=== PATIENT | male | born 1960 | race Caucasian/White ===

== ENCOUNTER 2020-09-03 13:36 | Emergency (ER) | payer OTHER ==
[~2020-09-03] VITALS: Ht 177.8 cm; Wt 65.0 kg
[2020-09-03] MEDS ORDERED: HYDROMORPHONE HCL/PF 2MG/ML CPJ IV ONE ×2 (15:00→17:15)
[2020-09-03] MEDS ORDERED: AMITRIPTYLINE 50MG TABLET PO ONE (15:00)
[2020-09-03] MEDS ORDERED: AMITRIPTYLINE 25MG TABLET PO ONE (15:30)
[2020-09-03 19:06] VITALS: BP 159/82
== END 2020-09-03 19:10 ==
LOC: ER 13:36
DX: M79.604 Pain in right leg (principal); Z98.890 Other specified postprocedural states
CPT/HCPCS: 96374; 96376; 99285; J1170

== ENCOUNTER 2021-05-13 17:06 | Emergency (ER) | payer OTHER ==
[~2021-05-13] VITALS: Ht 182.9 cm; Wt 91.0 kg
[2021-05-13] MEDS ORDERED: ONDANSETRON HCL 4MG/2ML INJ IV STA ×2 (17:35→18:56)
[2021-05-13] MEDS ORDERED: MORPHINE SULFATE 4 MG/ML CPJ (NOT FOR IM USE) IV STA ×2 (17:35→18:56)
[2021-05-13 18:06] LABS: BASOPHILS % 0.5 % (0.0-2.0); EOSINOPHILS % 1.3 % (0.0-5.0); HEMATOCRIT. 37.4 % (42.0-52.0); HEMOGLOBIN. 13.2 g/dL (14.0-18.0); LYMPHOCYTES % 15.8 % (20.0-50.0); MEAN CORPUSCULAR HEMOGLOBIN 31.3 pg (28.0-32.0); MEAN CORPUSCULAR VOLUME 89.2 fL (80.0-94.0); MEAN PLATELET VOLUME 7.1 fl (7.4-10.4); MONOCYTES % 7.2 % (2.0-8.0); NEUTROPHILS % 75.2 % (40.0-76.0); PLATELET 324 x1000/uL (130-400); RED CELL DISTRIBUTION WIDTH 13.5 % (11.6-14.6)
[2021-05-13 18:12] LABS: CHLORIDE 97 mEq/L (98-107)
[2021-05-13] MEDS ORDERED: HYDRALAZINE 20MG/ML VIAL IV ONE (20:15)
[2021-05-13] MEDS ORDERED: DIAZEPAM 5 MG TABLET PO ONE (21:00)
[2021-05-13 21:37] VITALS: BP 155/80
== END 2021-05-13 21:47 | disposition short-term general hospital (02) ==
LOC: ER 17:06
DX: S09.90XA Unspecified injury of head, initial encounter (principal); I10 Essential (primary) hypertension; Z20.822 Contact with and (suspected) exposure to COVID-19; Z98.890 Other specified postprocedural states; W18.30XA Fall on same level, unspecified, initial encounter; Y93.89 Activity, other specified; Y92.89 Other specified places as the place of occurrence of the external cause; Y99.8 Other external cause status
CPT/HCPCS: 36415; 70450; 70551; 71045; 72125; 72141; 80053; 83690; 83880; 84484; 85025; 87426; 93005; 96374; 96375; 96376; 99291; J0360; J2270; J2405